=== PATIENT | female | born 1995 | race Caucasian/White ===

== ENCOUNTER 2024-04-27 09:30 | Emergency (ER) | payer MEDICAID, SELFPAY ==
--- NOTE | ~2024-04-27 | XR_ITS ---
EXAMINATION: XR ankle RT min 3V DATE: 04/27/2024 10:01 INDICATION: Lateral sided right ankle pain post twisting injury TECHNIQUE: Anteroposterior, oblique, mortise, and lateral views of the right ankle were obtained. COMPARISON: 07/28/2008 FINDINGS: Again seen is a chronic nonunited fracture at the anterior tip of the lateral malleolus. Bone alignme nt is otherwise normal. No acute fracture. Joint space at the right ankle and visualized foot are nor mal. Soft tissues are unremarkable. No ankle joint effusion. IMPRESSION: 1. 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 No acute osseous abnormal ity. Reviewed, dictated and finalized at location A. IMPRESSION: 1. 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 No acute osseous abnormality.
[2024-04-27 09:42] VITALS: BP 113/64; PULSE 82; RESP 18; TEMP 36.6; O2SAT 100
--- NOTE | 2024-04-27 10:36 | ED.GENADULT ---
HPI - General Adult General Chief complaint: Extremity Injury, Lower Stated complaint: right ankle pain Time Seen by Provider: 04/27/24 10:22 History of Present Illness HPI narrative: 28-year-old female presented emergency department for evaluation of right ankle pain. Patient states over the course of her life she has injured the ankle multiple times, patient states she was walking yesterday and rolled the ankle again. Patient describes both medial and lateral malleolus pain. Patient denies any other pain or injury. Related Data Allergies Allergy/AdvReac Type Severity Reaction Status Date / Time No Known Allergies Allergy Mild Verified 04/27/24 09:31 Review of Systems Review of Systems: All systems reviewed & are unremarkable except as noted in HPI and below Exam Narrative: APPEARANCE: Well appearing, no pain, no distress, well-nourished. HEAD: normocephalic, atraumatic. EYES: PERRLA/EOMI, conjunctivae clear. NOSE: Normal no drainage EARS:TMS clear with good light reflex. THROAT: Pharynx clear, no exudate. NECK: Supple. No adenopathy, no masses. RESPIRATORY: Airway patent, respirations nonlabored. Clear to auscultation bilaterally, no rales, rhonchi, wheezing. CARDIOVASCULAR: Regular rate and rhythm without murmurs rubs or gallops. ABDOMINAL: Soft, nontender, nondistended, normal bowel sounds MUSCULOSKELETAL: Right ankle swelling and tenderness to palpation, no tenderness to right foot NEURO: Alert. Cranial nerves II through XII intact. Good gait. Good coordination SKIN: Warm, dry. Normal Color Course Vital Signs Vital signs: Vital Signs Temperature 98 F 04/27/24 09:42 Pulse Rate 82 04/27/24 09:42 Respiratory Rate 18 04/27/24 09:42 Blood Pressure 113/64 04/27/24 09:42 Pulse Oximetry 100 04/27/24 09:42 Oxygen Delivery Room Air 04/27/24 09:42 Temperature 98 F 04/27/24 09:42 Pulse Rate 82 04/27/24 09:42 Respiratory Rate 18 04/27/24 09:42 Blood Pressure 113/64 04/27/24 09:42 Pulse Oximetry 100 04/27/24 09:42 Oxygen Delivery Room Air 04/27/24 09:42 Medical Decision Making [facility] Narrative Medical decision making narrative: 28-year-old female presents to the emergency department for evaluation of right ankle pain. 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 No acute osseous abnormality. Patient was provided Bart wrap and crutches for limited weight-bearing. Patient was encouraged close follow-up with Orthopedics. All questions and concerns were addressed. Differential Diagnosis Differential Diagnosis: Ankle sprain, ankle fracture Vital Signs Vital Signs: Vital Signs Temperature 98 F 04/27/24 09:42 Pulse Rate 82 04/27/24 09:42 Respiratory Rate 18 04/27/24 09:42 Blood Pressure 113/64 04/27/24 09:42 Pulse Oximetry 100 04/27/24 09:42 Oxygen Delivery Room Air 04/27/24 09:42 Temperature 98 F 04/27/24 09:42 Pulse Rate 82 04/27/24 09:42 Respiratory Rate 18 04/27/24 09:42 Blood Pressure 113/64 04/27/24 09:42 Pulse Oximetry 100 04/27/24 09:42 Oxygen Delivery Room Air 04/27/24 09:42 Imaging Data Radiologist's impression: Impressions Ankle X-Ray 04/27/24 10:04 IMPRESSION: 1. 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 No acute osseous abnormality. Discharge Plan Discharge Clinical Impression: Ankle sprain and strain Patient Disposition: Home, Self-Care Condition: Stable Instructions: Antibiotic Form, Ankle Sprain (ED), Crutch Instructions (ED) Additional Instructions: Tylenol and ibuprofen for pain control. Bart wrap for comfort. Crutches for limited weight-bearing. Have close follow-up with Orthopedics. Follow-up/Referrals: Vadim Muñiz MD [Physician] - Marce Staley MD [Primary Care Provider] - Stand Alone Forms: Work/School Release IP
== END 2024-04-27 10:52 | disposition home or self-care (01) ==
LOC: ANHED 10:49
PROVIDERS: Emergency Provider Emergency Medicine; PCP Pediatrics
DX: S93.401A Sprain of unspecified ligament of right ankle, initial encounter (principal); S96.911A Strain of unspecified muscle and tendon at ankle and foot level, right foot, initial encounter; X50.9XXA Other and unspecified overexertion or strenuous movements or postures, initial encounter
CPT/HCPCS: 73610; 99283